=== PATIENT | male | born 1955 | race Caucasian/White ===

== ENCOUNTER 2017-03-28 09:42 | Emergency (ER) | payer BC ==
[2017-03-28] MEDS ORDERED: Sodium Chloride 0.9% 10 ML Syringe FLUSH PRN (09:53)
--- NOTE | 2017-03-28 10:46 | CR ---
Chest: Frontal view of the chest was obtained utilizing portable technique. Comparison: Previous chest x-ray of 03/24/16. Heart size and mediastinum are within normal limits. Slight discoid atelectasis is incidentally noted within the left lung base. Lungs otherwise are clear. Bony structures are grossly intact. Impression: 1. Nothing acute is identified on portable chest x-ray. Diagnostic code #2
--- NOTE | 2017-03-28 10:56 | EDM.PDOC ---
<Raul Lares Cooper - Last Filed: 03/28/17 10:58> ED HPI GENERAL MEDICAL PROBLEM - General Chief Complaint: Chest Pain Stated Complaint: CHEST PAIN Time Seen by Provider: 03/28/17 09:53 Source of Information: Reports: Patient, RN Notes Reviewed - History of Present Illness INITIAL COMMENTS - FREE TEXT/NARRATIVE: 61-year-old male with onset of chest discomfort this morning about 3 hours ago. The discomfort started lower anterior chest and for a period of time became fairly severe. He has had this somewhat frequently over the past several months and has been attributing this to acid reflux and possible esophageal spasm. He states that normally this will subside relatively quickly. However this was a bit more intense today and lasting longer than usual "my made me come". He lives [place] at [place]. Now upon arrival to our ED the discomfort is gone. This did not radiate to the upper chest. This did not go into his left shoulder or arm. Does have history of coronary artery disease with UT one year ago, "99% blockage right coronary artery" fixed with a stent. He is not felt week lightheaded or dizzy this morning. His been no difficulty breathing or diaphoresis. He does continue to smoke. Chest Pain Score (Numeric/FACES): 6 - Related Data Allergies Allergy/AdvReac Type Severity Reaction Status Date / Time No Known Allergies Allergy Verified 03/28/17 09:53 Home Meds: Home Meds Aspirin 81 mg PO BRK 03/24/16 [History] Clopidogrel [Plavix] 75 mg PO DAILY 03/28/17 [History] Mag Hydrox/Al Hydrox/Simeth [Maalox Maximum Strength Susp] 10 ml PO QID PRN #1 bottle 03/28/17 [Rx] Pantoprazole [ProTONIX] 40 mg PO DAILY 03/28/17 [History] Ranitidine [Zantac] 150 mg PO BID #60 tab 03/28/17 [Rx] atorvaSTATin [Lipitor] 10 mg PO DAILY 03/28/17 [History] Past Medical History - Past Health History Medical/Surgical History: Denies Medical/Surgical History HEENT History: Reports: Impaired Vision Cardiovascular History: Reports: High Cholesterol, UT Gastrointestinal History: Reports: GERD - Past Surgical History Cardiovascular Surgical History: Reports: Coronary Artery Stent Social & Family History - Family History Family Medical History: Unobtainable - Tobacco Use Smoking Status *Q: Current Every Day Smoker Years of Tobacco use: 45 Packs/Tins Daily: 0.5 - Caffeine Use Caffeine Use: Reports: Coffee - Alcohol Use Days Per Week of Alcohol Use: 0 - Recreational Drug Use Recreational Drug Use: No ED ROS GENERAL - Review of Systems Review Of Systems: See Below Constitutional: Denies: Fever, Chills, Diaphoresis HEENT: Reports: No Symptoms Respiratory: Reports: Cough (Chronically). Denies: Shortness of Breath, Wheezing, Sputum Cardiovascular: Reports: Chest Pain (Lower anterior chest). Denies: Lightheadedness, Palpitations GI/Abdominal: Denies: Abdominal Pain, Nausea, Vomiting Musculoskeletal: Denies: Neck Pain, Shoulder Pain, Arm Pain Skin: Reports: No Symptoms Neurological: Reports: No Symptoms Course - Vital Signs Last Recorded V/S: Last Vital Signs Temp 36.6 C 03/28/17 09:47 Pulse 58 L 03/28/17 10:59 Resp 16 03/28/17 10:59 BP 124/78 03/28/17 10:59 Pulse Ox 98 03/28/17 10:59 - Orders/Labs/Meds Orders: Active Orders 24 hr Category Date Time Status EKG 12 Lead [EKG Documentation Completion] [RC] STAT Care 03/28/17 09:54 Active EKG 12 Lead [EKG Documentation Completion] [RC] STAT Care 03/28/17 11:39 Active Peripheral IV Care [RC] . DIRECTED Care 03/28/17 09:54 Active Sodium Chloride 0.9% [Saline Flush] Med 03/28/17 09:53 Active 10 ml FLUSH ASDIRECTED PRN Peripheral IV Insertion Adult [OM.PC] Stat Oth 03/28/17 09:54 Ordered Medication Orders Sodium Chloride (Saline Flush) 10 ml FLUSH ASDIRECTED PRN PRN Reason: Keep Vein Open Last Admin: 03/28/17 10:00 Dose: 10 ml Labs: Laboratory Tests 03/28/17 03/28/17 03/28/17 Range/Units 09:55 09:55 09:55 WBC 6.71 (4.23-9.07) K/mm3 RBC 5.78 (4.63-6.08) M/mm3 Hgb 16.5 (13.7-17.5) gm/L Hct 48.2 (40.1-51.0) % MCV 83.4 (79.0-92.2) fl MCH 28.5 (25.7-32.2) pg MCHC 34.2 (32.2-35.5) g/dl RDW Std Deviation 40.1 (35.1-43.9) fL Plt Count 259 (163-337) K/mm3 MPV 9.3 L (9.4-12.3) fl Neut % (Auto) 55.4 (34.0-67.9) % Lymph % (Auto) 34.7 (21.8-53.1) % Sac % (Auto) 7.0 (5.3-12.2) % Eos % (Auto) 1.9 (0.8-7.0) Baso % (Auto) 0.9 (0.1-1.2) % Neut # (Auto) 3.71 (1.78-5.38) K/mm3 Lymph # (Auto) 2.33 (1.32-3.57) K/mm3 Sac # (Auto) 0.47 (0.30-0.82) K/mm3 Eos # (Auto) 0.13 (0.04-0.54) K/mm3 Baso # (Auto) 0.06 (0.01-0.08) K/mm3 Sodium 138 (136-145) mEq/L Potassium 3.9 (3.5-5.1) mEq/L Chloride 104 (98-107) mEq/L Carbon Dioxide 28 (21-32) mEq/L Anion Gap 9.9 (5-15) BUN 14 (7-18) mg/dL Creatinine 1.1 (0.7-1.3) mg/dL Est Cr Clr Drug Dosing TNP Estimated GFR (MDRD) > 60 (>60) mL/min BUN/Creatinine Ratio 12.7 L (14-18) Glucose 110 (80-115) mg/dL Calcium 9.1 (8.5-10.1) mg/dL Total Bilirubin 0.4 (0.2-1.0) mg/dL AST 17 (15-37) U/L ALT 35 (16-63) U/L Alkaline Phosphatase 70 (46-116) U/L Troponin I < 0.017 (0.00-0.056) ng/mL Total Protein 7.8 (6.4-8.2) g/dl Albumin 4.0 (3.4-5.0) g/dl Globulin 3.8 gm/dL Albumin/Globulin Ratio 1.1 (1-2) // Range/Units 11:50 WBC (4.23-9.07) K/mm3 RBC (4.63-6.08) M/mm3 Hgb (13.7-17.5) gm/L Hct (40.1-51.0) % MCV (79.0-92.2) fl MCH (25.7-32.2) pg MCHC (32.2-35.5) g/dl RDW Std Deviation (35.1-43.9) fL Plt Count (163-337) K/mm3 MPV (9.4-12.3) fl Neut % (Auto) (34.0-67.9) % Lymph % (Auto) (21.8-53.1) % Sac % (Auto) (5.3-12.2) % Eos % (Auto) (0.8-7.0) Baso % (Auto) (0.1-1.2) % Neut # (Auto) (1.78-5.38) K/mm3 Lymph # (Auto) (1.32-3.57) K/mm3 Sac # (Auto) (0.30-0.82) K/mm3 Eos # (Auto) (0.04-0.54) K/mm3 Baso # (Auto) (0.01-0.08) K/mm3 Sodium (136-145) mEq/L Potassium (3.5-5.1) mEq/L Chloride (98-107) mEq/L Carbon Dioxide (21-32) mEq/L Anion Gap (5-15) BUN (7-18) mg/dL Creatinine (0.7-1.3) mg/dL Est Cr Clr Drug Dosing Estimated GFR (MDRD) (>60) mL/min BUN/Creatinine Ratio (14-18) Glucose (80-115) mg/dL Calcium (8.5-10.1) mg/dL Total Bilirubin (0.2-1.0) mg/dL AST (15-37) U/L ALT (16-63) U/L Alkaline Phosphatase (46-116) U/L Troponin I < 0.017 (0.00-0.056) ng/mL Total Protein (6.4-8.2) g/dl Albumin (3.4-5.0) g/dl Globulin gm/dL Albumin/Globulin Ratio (1-2) Meds: Medications Generic Name Dose Route Start Last Admin Trade Name Frelakesha PRN Reason Stop Dose Admin Sodium Chloride 10 ml 03/28/17 09:53 03/28/17 10:00 Saline Flush FLUSH 10 ml ASDIRECTED PRN Administration Keep Vein Open Discontinued Medications Generic Name Dose Route Start Last Admin Trade Name Freq PRN Reason Stop Dose Admin Al Hydroxide/Mg Hydroxide 30 0 ml 03/28/17 11:39 03/28/17 11:45 ml/ Lidocaine HCl 15 ml PO 03/28/17 11:40 45 ml ONETIME ONE Administration Famotidine 40 mg 03/28/17 11:39 03/28/17 11:44 Pepcid PO 03/28/17 11:40 40 mg ONETIME ONE Administration - Re-Assessments/Exams Free Text/Narrative Re-Assessment/Exam: 03/28/17 10:58. EKG did not show acute changes for acute myocardial infarction. Chest x-ray does not show anything acute. Troponin has come back normal. Because he does live 80 miles away, continues to smoke and history of prior coronary artery disease we will observe him and do a follow-up 2 or 3 hour troponin. Due to change of shift I'm going to transfer care to Dr. Jennifer Lares. He continues to rest comfortably pain-free at this time. He has been in sinus rhythm, no ectopy. Departure - Departure Disposition: Home, Self-Care Clinical Impression: Atypical chest pain Prescriptions: Mag Hydrox/Al Hydrox/Simeth [Maalox Maximum Strength Susp] 10 ml PO QID PRN #1 bottle PRN Reason: Indigestion Ranitidine [Zantac] 150 mg PO BID #60 tab Instructions: Nonspecific Chest Pain Referrals: Zander Jean MD [Primary Care Provider] - Forms: ED Department Discharge Additional Instructions: 1. Follow up with a primary doctor as soon as possible for further care 2. Take ranitidine as prescribed daily to reduce stomach acid 3. Take maalox as prescribed with meals 4. Return to the ED if you have chest pain, shortness of breath, or any other concerning symptoms - My Orders Last 24 Hours: My Active Orders 03/28/17 11:39 EKG 12 Lead [EKG Documentation Completion] [RC] STAT - Assessment/Plan Last 24 Hours: My Active Orders 03/28/17 11:39 EKG 12 Lead [EKG Documentation Completion] [RC] STAT <Luda,Kjmartínezluis Liys - Last Filed: 03/28/17 12:56> ED ROS GENERAL - Review of Systems Review Of Systems: See Below ED EXAM, GENERAL - Physical Exam Exam: See Below Exam Limited By: No Limitations General Appearance: Alert, WD/WN, No Apparent Distress Eye Exam: Bilateral Eye: Normal Inspection, PERRL Ears: Normal External Exam Nose: Normal Inspection, Normal Mucosa, No Blood Throat/Mouth: Normal Inspection, Normal Voice, No Airway Compromise Head: Atraumatic, Normocephalic Neck: Normal Inspection, Supple, Non-Tender, Full Range of Motion Respiratory/Chest: No Respiratory Distress, Lungs Clear, Normal Breath Sounds, No Accessory Muscle Use, Chest Non-Tender Cardiovascular: Normal Peripheral Pulses, Regular Rate, Rhythm, No Murmur GI/Abdominal: Soft, Non-Tender, No Distention. No: Rebound Neurological: Alert, Oriented, Normal Cognition, No Motor/Sensory Deficits Psychiatric: Normal Affect, Normal Mood Skin Exam: Warm, Dry, Intact, Normal Color, No Rash Course - Re-Assessments/Exams Free Text/Narrative Re-Assessment/Exam: 03/28/17 11:26 I assumed care from Dr. Katina Lares. Briefly, this is a 61-year-old male with a history of coronary artery disease who had an episode of chest pain this morning. His emergency department workup has been negative, with an unremarkable EKG, normal chest x-ray, and negative troponin. I recommended that the patient stay for repeat cardiac enzymes at the two-hour anival, however he is not willing to stay. He states that it has been several hours since the chest pain initially happened and he feels totally fine now. He is convinced that the chest pain is caused by his esophagus rather than his heart, which while likely , I explained that we haven't completely ruled out a cardiac cause today. The patient understood. He understands the risk of a missed UT if he leaves prior to completing repeat cardiac testing. He would like to go home now. 03/28/17 11:49 Upon discharge, patient had recurrence of his chest/abdominal discomfort. He has lower chest burning sensation. He would like to stay and try some medications to see if we can get this under control, meanwhile we will get a repeat EKG and troponin. I ordered a GI cocktail and famotidine. Repeat EKG continues to show no ischemic changes. 03/28/17 12:54 Repeat EKG and troponin negative. Patient feels completely back to normal after GI cocktail and famotidine. Departure - Departure Time of Disposition: 12:30 Condition: Fair - My Orders Last 24 Hours: My Active Orders 03/28/17 11:39 EKG 12 Lead [EKG Documentation Completion] [RC] STAT - Assessment/Plan Last 24 Hours: My Active Orders 03/28/17 11:39 EKG 12 Lead [EKG Documentation Completion] [RC] STAT
[2017-03-28] MEDS ORDERED: Alum Hydrox/Mag Hydrox/Simeth 30 ML, Lidocaine 2% 15 ML PO ONE ×2 (11:39)
[2017-03-28] MEDS ORDERED: Famotidine 20 MG Tab PO ONE (11:39)
[2017-03-28 13:09] VITALS: BP 128/78
== END 2017-03-28 13:09 | disposition home or self-care (01) ==
LOC: JD.ED 09:42
DX: R07.89 Other chest pain (principal); E78.00 Pure hypercholesterolemia, unspecified; I25.2 Old myocardial infarction; K21.9 Gastro-esophageal reflux disease without esophagitis; F17.210 Nicotine dependence, cigarettes, uncomplicated; Z79.82 Long term (current) use of aspirin; Z79.899 Other long term (current) drug therapy
CPT/HCPCS: 36415; 71010; 80053; 84484; 85025; 93005; 99285; A9270; J7050; 99284